=== PATIENT | female | born 1965 ===

== ENCOUNTER 2017-07-06 08:05 | Day surgery (SDC) | payer BC ==
[2017-06-30 09:23] VITALS: BMI 19.0
[2017-07-06] MEDS ORDERED: cefOXitin IV 2 gm in Dextrose 0 GM/0 ML BAG IVPB ONE (08:44)
[2017-07-06] MEDS ORDERED: Lidocaine Hydrochloride 5 ML INJ ONE (08:49)
[2017-07-06] MEDS ORDERED: Midazolam 2 MG/2 ML VIAL ONE (08:49)
[2017-07-06] MEDS ORDERED: Propofol 10 mg/ml Inj (20 ML) ONE (08:49)
[2017-07-06] MEDS ORDERED: Lactated Ringer's 1,000 ML IV ONE ×2 (09:02→16:25)
[2017-07-06] MEDS ORDERED: Lactated Ringer's 1,000 ML IV SCH (12:30)
[2017-07-06] MEDS: Clindamycin 2% Vaginal Cream(40 gm) ONE ×2 (13:06→15:38)
[2017-07-06] MEDS ORDERED: ceFAZolin IV 1 gm in Dextrose 1 GM/50 ML BAG IVPB ONE (14:01)
[2017-07-06] MEDS ORDERED: Vasopressin 20 Units/ml Inj ONE (15:06)
[2017-07-06] MEDS ORDERED: Clindamycin 2% Vaginal Cream(40 gm) ONE (15:25)
--- NOTE | 2017-07-06 17:10 | PCM.SURG1 ---
Surgeon's Initial Post Op Note - Surgeon's Notes Surgeon: Dr. Lupis Barrett Stock Analyst: Dr. Chauhan Type of Anesthesia: General Endo Pre-Operative Diagnosis: cystocele, rectocele, bilateral labial hypertrophy Operative Findings: same Post-Operative Diagnosis: same Operation Performed: anterior, posterior repair, bilateral labialplasty, cystoscopy Specimen/Specimens Removed: portions of labial tissue bilaterally Estimated Blood Loss: EBL {In ML}: 50 Blood Products Given: N/A Drains Used: No Drains Date of Surgery/Procedure: 07/06/17 Time of Surgery/Procedure: 02:30
[2017-07-06 18:58] VITALS: BP 105/48; PULSE 97; RESP 11; TEMP 98.7; O2SAT 97
--- NOTE | 2017-07-07 02:22 | OP ---
PROCEDURE DATE: 07/06/2017 PREOPERATIVE DIAGNOSES: Cystocele, rectocele, bilateral labial hypertrophy. POSTOPERATIVE DIAGNOSES: Cystocele, rectocele, bilateral labial hypertrophy. INTRAOPERATIVE FINDINGS: Cystocele, rectocele and bilateral labial hypertrophy. SURGERY PERFORMED: Anterior and posterior repair, bilateral labioplasty and cystoscopy. SPECIMENS REMOVED: Portions of the labia bilaterally. SURGEON: Lupis Barrett MD. FORENSIC EXAMINER SURGEON: Vitaliy Chauhan MD. TYPE OF ANESTHESIA: General endotracheal. ESTIMATED BLOOD LOSS: 50 mL. There was no blood replaced. DRAINS: There were no drains used. The patient was given 1 g of Ancef prior to procedure. DESCRIPTION OF PROCEDURE: After all relevant documentation was reviewed and signed by , the patient was taken back to the OR room. She was prepped and draped in the usual sterile fashion after being placed in lithotomy position. After bimanual examination revealed previously mentioned findings and the bladder was then straight cathed, a cystocele was identified and grasped with the use of two Allis clamps. A vertical midline incision was then made with the use of a scalpel and then the bladder was then gently dissected off the vaginal epithelium and the vaginal epithelium was completely dissected off the pubovesical fascia. Once the bladder was completely mobilized, plication placed with the use of 0-Vicryl. The bladder was then lifted and the vaginal epithelium was then reapproximated with the use of 2-0 Vicryl in a running fashion. Attention was then placed to the posterior portion of the procedure where an inverted triangle shape of skin was then carved off from the perineum and then after injecting Pitressin for hydrodissection and hemostasis, the rectovaginal fascia was then dissected off the vaginal epithelium. Once the entirety of the rectocele was then mobilized, the rectovaginal fascia was then plicated over the rectum and then the vaginal epithelium was then reapproximated. The right and left labia were identified, marked and excess labial skin was then removed with the use of a knife and cautery. The labia was then made hemostatic with the edges being closed together with the use of 2-0 Vicryl in a running fashion. The perineum was then reapproximated and reinforced and the skin was then reapproximated in a subcuticular fashion. Excellent hemostasis was noted. The vagina was packed with vaginal packing. Overton catheter was left in place and the patient was then awoken from the operating room and taken back to the recovery room in stable condition. Lupis Barrett MD
== END 2017-07-06 21:25 | disposition home or self-care (01) ==
LOC: C.SDS 08:05
PROVIDERS: ATTEND Obstetrics & Gynecology
DX: N81.6 Rectocele (principal); N81.10 Cystocele, unspecified; N90.69 Other specified hypertrophy of vulva
CPT/HCPCS: 56620; 57260; J0690; J1170; J2250; J2405; J2704; J3010; J7120

== ENCOUNTER 2018-05-24 08:47 | Observation (INO) | payer BC ==
[2018-05-17 12:59] VITALS: BMI 21.0
[2018-05-24] MEDS ORDERED: ceFAZolin 1 gm in NS 1 GM/100 ML BAG IVPB ONE (11:59)
[2018-05-24] MEDS ORDERED: Bupivacaine HCl 0.5% PF (30 ml) Inj ONE (12:00)
[2018-05-24] MEDS ORDERED: Bupivacaine 0.25% 20 ML INJ IJ ONE (12:00)
[2018-05-24] MEDS ORDERED: Propofol 10 mg/ml Inj (20 ML) ONE (12:26)
[2018-05-24] MEDS ORDERED: Midazolam 2 MG/2 ML VIAL ONE (12:26)
[2018-05-24] MEDS ORDERED: Sodium Chloride 0.9% 0 ML IV ONE (13:35)
[2018-05-24] MEDS ORDERED: Vasopressin 20 Units/ml Inj ONE (13:35)
[2018-05-24] MEDS ORDERED: Clindamycin 2% Vaginal Cream(40 gm) ONE (13:50)
[2018-05-24] MEDS ORDERED: Rocuronium 10 mg/ml (5 ml) ONE (14:17)
[2018-05-24] MEDS ORDERED: Lactated Ringer's 1,000 ML IV ONE (14:35)
[2018-05-24] MEDS ORDERED: Sodium Chloride 0.9% 1,000 ML IV SCH (14:45)
--- NOTE | 2018-05-24 14:48 | PCM.SURG1 ---
Surgeon's Initial Post Op Note - Surgeon's Notes Surgeon: Dr. Barrett Manager Database: Dr. Chauhan Type of Anesthesia: General Endo Pre-Operative Diagnosis: Pelvic pain, pelvic organ prolapse Operative Findings: Dense adhesions between bowel, uterus, and anterior abdominal wall. Bladder was intact, bilateral ureteral jets seen. Pelvic organ prolapse stage II Post-Operative Diagnosis: same Operation Performed: Laparoscopic lysis of adhesions, partial trachelectomy, cystoscopy Specimen/Specimens Removed: Portion of cervix Estimated Blood Loss: EBL {In ML}: 50 Blood Products Given: N/A Drains Used: No Drains Post-Op Condition: Good Date of Surgery/Procedure: 05/24/18 Time of Surgery/Procedure: 13:00
[2018-05-24] MEDS ORDERED: HYDROmorphone 0.5 mg/0.5 ml ISec ONE ×2 (14:56→15:19)
[2018-05-24] MEDS: HYDROmorphone 0.5 mg/0.5 ml ISec IVP PRN ×2 (14:56→15:15)
[2018-05-24] MEDS ORDERED: Sodium Chloride 0.9% 1,000 ML IV ONE (15:25)
[2018-05-24 17:12] VITALS: RESP 18
[2018-05-24] MEDS ORDERED: DiphenhydrAMINE 50 mg/ml Inj IVP STA (17:15)
[2018-05-24] MEDS: cefOXitin IV 1 gm in Dextrose 1 GM/50 ML BAG IVPB SCH (21:46)
[2018-05-25] MEDS: Oxycodone/Acetaminophen 5/325 mg Tab PO PRN ×2 (02:41→15:06)
[2018-05-25 05:42] VITALS: O2SAT 98
[2018-05-25] MEDS: cefOXitin IV 1 gm in Dextrose 1 GM/50 ML BAG IVPB SCH (06:01)
[2018-05-25] MEDS ORDERED: Levothyroxine 100 MCG TAB PO SCH (06:30)
[2018-05-25 07:29] LABS: BASO % 0.4 % (0.0-2.0); LYMPH # 1.3 K/uL (1.0-4.3); LYMPH % 10.4 % (20.0-40.0); MEAN CELL VOLUME 93.5 fL (81.0-99.0); MEAN CORPUSCULAR HEMOGLOBIN 31.4 pg (27.0-31.0); MEAN CORPUSCULAR HGB CONC 33.6 g/dL (33.0-37.0); MEAN PLATELET VOLUME 8.1 fL (7.2-11.7); MONO # 0.7 K/uL (0.0-0.8); MONO % 5.6 % (0.0-10.0); NEUT # 10.4 K/uL (1.8-7.0); NEUT % 83.6 % (50.0-75.0); RBC 3.5 Mil/uL (3.80-5.20); RED CELL DISTRIBUTION WIDTH 13.5 % (11.5-14.5); WHITE BLOOD COUNT 12.4 K/uL (4.8-10.8)
[2018-05-25 07:38] LABS: BLOOD UREA NITROGEN 14 mg/dL (7-17); GFR NON-AFRICAN AMERICAN > 60
[2018-05-25 18:01] VITALS: BP 90/60; PULSE 67; TEMP 99.3
--- NOTE | 2018-06-03 23:53 | OP ---
PROCEDURE DATE: 05/24/2018 SURGEON: Lupis Barrett MD READING TUTOR SURGEON: Vitaliy Chauhan MD TYPE OF ANESTHESIA: General endotracheal. PREOPERATIVE DIAGNOSES: Pelvic pain, pelvic organ prolapse. POSTOPERATIVE DIAGNOSES: Pelvic pain, pelvic organ prolapse. INTRAOPERATIVE FINDINGS: Dense adhesions between bowel, uterus and anterior abdominal wall. Bladder was intact. Bilateral ureteral jets were noted. Pelvic organ prolapse stage II. SURGERY PERFORMED: Laparoscopic lysis of adhesions, partial and cystoscopy. SPECIMENS REMOVED: Portion of the cervix. ESTIMATED BLOOD LOSS: 50 mL. BLOOD PRODUCTS: There were no blood products given. DRAINS: There were no drains used. POSTOPERATIVE CONDITION: Stable. ADDITIONAL COMMENTS: All lap counts and instrument counts were correct x2. DESCRIPTION OF PROCEDURE: After all relevant documentation was reviewed and signed by MD, the patient was taken back to the OR room. She was prepped and draped in the usual sterile fashion after being placed in lithotomy position. Attention was then placed to the genital area where a weighted speculum was introduced and with the use of right angled retractor, excellent visualization of the cervix was noted. The cervix was grasped with a single-tooth tenaculum, and then it was gently serially dilated. VCare device was then introduced. Attention was then placed to the patient's abdomen where an umbilical 5-mm incision was made with the use of a scalpel after injecting Marcaine. The laparoscope was then introduced into the intra-abdominal cavity under direct visualization. Once inside the intra-abdominal cavity, pneumoperitoneum was achieved, and bilateral right and left lower quadrant 5-mm ports were placed under direct visualization. Dense adhesions were noted as previously discussed, and the adhesions were then taken down with the use of a LigaSure and blunt dissection. Once the majority of the adhesions were taken down and excellent hemostasis was confirmed under low pressure, the pneumoperitoneum was evacuated and the ports were then closed with the use of 3-0 Monocryl in the subcuticular fascia. Attention was then placed with the patient's vagina where the VCare device. After it was removed, the cervix was grasped with the use of Naylor tenaculum. Pitressin was then injected, and the cervicovaginal junction was identified. An incision in the cervix was made with the use of the Bovie and then carried out circumferentially, and the vaginal epithelium was then gently dissected off the uterus and the cervix. The cervix was then amputated with a small remaining portion and then reapproximated with the use of 2-0 Vicryl for excellent hemostasis. Once excellent hemostasis was confirmed, all instruments were removed. The vagina was packed. Prior to awakening the patient, now we proceeded with the cystoscopy portion of the procedure where the cystoscope was introduced atraumatically. The bladder was noted to be intact, and bilateral ureteral jets were noted. The scope was removed. Overton catheter was replaced and vaginal packing was placed. Excellent hemostasis was noted. The patient was then awoken from general anesthesia and taken back to the recovery room in stable condition. Lupis Barrett MD
== END 2018-05-25 20:28 | disposition home health service (06) ==
LOC: C.SDS 08:47 → C.4D 14:40 → C.9S 15:32 → C.4M 16:01
PROVIDERS: ADMIT Obstetrics & Gynecology; ATTEND Obstetrics & Gynecology
DX: N81.9 Female genital prolapse, unspecified (principal); R10.2 Pelvic and perineal pain
CPT/HCPCS: 36415; 44180; 52000; 80048; 85025; 86850; 86900; 88305; 96361; 96365; 96375; 96376; G0378; J0694; J1100; J1170; J1885; J2250; J2704; J3010; J7030; J7120